=== PATIENT | female | born 1990 | race Caucasian/White ===

== ENCOUNTER → 2016-03-05 09:17 | Outpatient (CLI) | payer OTHER | END | disposition home or self-care (01) | LOC: D.NM 09:17 | DX: R10.9 Unspecified abdominal pain (principal) ==

== ENCOUNTER → 2016-09-25 11:17 | Outpatient (CLI) | payer OTHER | END | disposition home or self-care (01) | LOC: D.CT 11:17 | DX: J32.9 Chronic sinusitis, unspecified (principal) ==

== ENCOUNTER → 2017-05-30 10:59 | Outpatient (CLI) | payer OTHER | END | disposition home or self-care (01) | LOC: D.NM 10:59 | DX: R10.9 Unspecified abdominal pain (principal) ==